=== PATIENT | female | born 1995 | race African-American/Black ===

== ENCOUNTER 2020-06-30 22:06 | Emergency (ER) | payer SELFPAY ==
[~2020-06-30] VITALS: Ht 165.1 cm; Wt 118.0 kg
[2020-06-30 22:28] VITALS: BP 140/75
--- NOTE | 2020-06-30 22:36 | PHYS DOC ---
General Adult EDM: Chief Complaint: LACERATION/AVULSION HPI: HPI: Patient is a 24 year old female with no past medical history presents for a laceration over her right supraorbital region. She states that around 6 PM her grandmother [place] and she opened the car door and hit her right supraorbital prominence with the car door. She states that she did not lose consciousness, she does not have a headache, she did not hit any other region of her head, she is not on any medications. She states that since that time she has had oozing of blood from the laceration. She is controlled this oozing with a Band-Aid. She does not know if her tetanus is up-to-date. Review of Systems: Review of Systems: Constitutional: Denies fever or chills. [] Eyes: Denies change in visual acuity. [] HENT: Denies nasal congestion or sore throat. [] Respiratory: Denies cough or shortness of breath. [] Cardiovascular: Denies chest pain or edema. [] GI: Denies abdominal pain, nausea, vomiting, bloody stools or diarrhea. [] : Denies dysuria. [] Musculoskeletal: Denies back pain or joint pain. [] Integument: Denies rash [positive laceration] Neurologic: Denies headache, focal weakness or sensory changes. [] Endocrine: Denies polyuria or polydipsia. [] Lymphatic: Denies swollen glands. [] Psychiatric: Denies depression or anxiety. [] Heart Score: Risk Factors: Risk Factors: DM, Current or recent (<one month) smoker, HTN, HLP, family history of CAD, obesity. Risk Scores: Score 0 - 3: 2.5% MACE over next 6 weeks - Discharge Home Score 4 - 6: 20.3% MACE over next 6 weeks - Admit for Clinical Observation Score 7 - 10: 72.7% MACE over next 6 weeks - Early Invasive Strategies Allergies: Allergies: Allergies Coded Allergies Type Severity Reaction Last Updated Verified No Known Drug Allergies 06/30/20 No Physical Exam: PE: Constitutional: Well developed, well nourished, no acute distress, non-toxic appearance. [] HENT: Normocephalic, atraumatic, bilateral external ears normal, oropharynx moist, no oral exudates, nose normal. [] Eyes: PERRLA, EOMI, conjunctiva normal, no discharge. [] Neck: Normal range of motion, no tenderness, supple, no stridor. [] Cardiovascular:Heart rate regular rhythm, no murmur [] Lungs & Thorax: Bilateral breath sounds clear to auscultation [] Abdomen: Bowel sounds normal, soft, no tenderness, no masses, no pulsatile masses. [] Skin: 2 cm laceration over right supraorbital area outer region directly superior to eyebrow [] Back: No tenderness, no CVA tenderness. [] Extremities: No tenderness, no cyanosis, no clubbing, ROM intact, no edema. [] Neurologic: Alert and oriented X 3, normal motor function, normal sensory function, no focal deficits noted. [] Psychologic: Affect normal, judgement normal, mood normal. [] EKG: EKG: [] Radiology/Procedures: Radiology/Procedures: [] Course & Med Decision Making: Course & Med Decision Making Pertinent Labs and Imaging studies reviewed. (See chart for details) []Procedure- Suture by Medical Student Miguel Angel Summers- under supervision. Anesthesia with LET Once successful anesthesia was achieved wound was cleaned and explored no foreign bodies identified Laceration approximately 2 cm in length location right facial superior to right eyebrow. 6.0 nylon--4 sutures simple interrupted placed no complications Patient discharged home instructed to have sutures removed in 5 to 7 days. Sherin Disclaimer: Sherin Disclaimer: This electronic medical record was generated, in whole or in part, using a voice recognition dictation system. Departure Departure Impression: Primary Impression: Laceration Disposition: 01 DC HOME SELF CARE/HOMELESS Condition: STABLE Patient Instructions: Facial Laceration, Sutured Wound Care GHISLAINE AMES DO Jun 30, 2020 22:36
[2020-06-30] MEDS ORDERED: LIDOCAINE/EPI/TETRACAINE TOPICAL GEL 3 ML. TP ONE (23:00)
== END 2020-06-30 23:43 | disposition home or self-care (01) ==
LOC: EDBD 22:06 → ER 22:06
DX: S01.111A Laceration without foreign body of right eyelid and periocular area, initial encounter (principal); W22.8XXA Striking against or struck by other objects, initial encounter; Y93.89 Activity, other specified; Y92.89 Other specified places as the place of occurrence of the external cause; Y99.8 Other external cause status
CPT/HCPCS: 12011; 99282